=== PATIENT | male | born 1985 | race Two or more races ===

== ENCOUNTER 2021-08-15 10:10 | Outpatient (CLI) | payer OTHER, SELFPAY ==
--- NOTE | 2021-08-15 13:30 | P.PCNPFT_ITS ---
PFT Procedure Performed PFT Procedure Performed Spirometry with Pre/Post Bronchodilator Plethysmography (Lung Vol) Diffusing Cap (DLCO) Flow Vol Loop PFT Interpretation Lung volumes were measured with the body plethysmography method. The lung volumes are unremarkable. Spirometry showed diminished expiratory flow rates an d a diminished FEV1 to FVC ratio of 54%, indicative of obstructive airway disease. No post bronchodilator study was carried out. Lung diffusion capacity is mildly reduced at 75% predicted. The flow volume loop is unremarkable. Impression: Moderate obstructive airway disease. Mildly reduced lung diffusion capacity.
== END 2021-08-15 10:11 | disposition home or self-care (01) ==
PROVIDERS: PCP Family Medicine; Visit Provider Family Medicine
DX: R06.09 Other forms of dyspnea (principal); R06.02 Shortness of breath
CPT/HCPCS: 94375; 94726; 94729